=== PATIENT | female | born 2000 | race Caucasian/White ===

== ENCOUNTER 2022-07-26 22:43 | Emergency (ER) | payer OTHER ==
[2022-07-26 22:48] VITALS: BP 118/73; PULSE 100; RESP 18; TEMP 98.4; BMI 19.5
[2022-07-26] MEDS ORDERED: ONDANSETRON 4 MG/2 ML VIAL IVPUSH ONE (23:48)
[2022-07-26] MEDS ORDERED: LACTATED RINGERS SOLUTION 1000 ML INFUS.BAG IV ONE (23:49)
[2022-07-27 00:01] LABS: BASO % 0.2 % (0-2.0); EOS % 1.5 % (0-4.5); HEMATOCRIT 46.4 % (32.4-45.2); HEMOGLOBIN 15.4 GM/dL (10.7-15.3); LYMPH % 30.9 % (8-40); MCH 26.7 pg (25.7-33.7); MCHC 33.1 g/dl (32.0-36.0); MEAN CELL VOLUME 80.7 fl (80-96); MEAN PLT VOLUME 9.2 fl (7.5-11.1); MONO % 8.3 % (3.8-10.2); NEUT % 59.1 % (42.8-82.8); PLATELET COUNT 309 10^3/uL (134-434); RBC 5.75 M/mm3 (3.60-5.2); RDW 14.8 % (11.6-15.6); WHITE BLOOD COUNT 7.9 K/mm3 (4.0-10.0)
[2022-07-27] MEDS ORDERED: ONDANSETRON 4 MG/2 ML VIAL ONE (00:24)
[2022-07-27 00:38] LABS: BLOOD UREA NITROGEN 8.3 mg/dL (7-18); CALCIUM 9.8 mg/dL (8.5-10.1); MAGNESIUM 1.9 mg/dL (1.8-2.4)
[2022-07-27 00:39] LABS: ALBUMIN 4.2 g/dl (3.4-5.0)
[2022-07-27 00:41] LABS: CREATININE 0.6 mg/dL (0.55-1.3)
[2022-07-27 00:43] LABS: EPI CELLS 18 /uL (0-25.1); HYALINE CASTS 1 /uL (0-3.1); URINE APPEARANCE CLEAR; URINE BACTERIA 38 /uL (0-1359); URINE BILIRUBIN NEGATIVE (NEGATIVE); URINE COLOR YELLOW; URINE GLUCOSE (UA) NEGATIVE (NEGATIVE); URINE KETONE NEGATIVE (NEGATIVE); URINE LEUK ESTERASE NEGATIVE (NEGATIVE); URINE NITRITE NEGATIVE (NEGATIVE); URINE PROTEIN NEGATIVE (NEGATIVE); URINE RBC 32 /uL (0-23.9); URINE WBC 27 /uL (0-25.8)
[2022-07-27 00:43] LABS: BILIRUBIN,TOTAL 0.3 mg/dL (0.2-1)
[2022-07-27 01:12] LABS: HCG,QUALITATIVE URINE Positive
== END 2022-07-27 03:26 | disposition home or self-care (01) ==
LOC: JER 22:43
PROC: 3E033GC Introduction of Other Therapeutic Substance into Peripheral Vein, Percutaneous Approach (ICD-10-PCS; principal; 2022-07-26)
DX: O20.0 Threatened abortion (principal); Z3A.01 Less than 8 weeks gestation of pregnancy
CPT/HCPCS: 76817-TC; 80053; 81003; 83735; 84702; 84703; 85025; 86850; 86900; 86901; 87086; 99284-25

== ENCOUNTER 2022-07-29 07:55 | Emergency (ER) | payer OTHER ==
[2022-07-29 08:06] VITALS: BP 124/74; PULSE 71; RESP 20; TEMP 98.5; BMI 20.9
[2022-07-29 10:09] LABS: EPI CELLS 36 /uL (0-25.1); HYALINE CASTS 7 /uL (0-3.1); URINE APPEARANCE CLOUDY; URINE BACTERIA 279 /uL (0-1359); URINE BILIRUBIN 1+ (NEGATIVE); URINE COLOR DK YELLOW; URINE GLUCOSE (UA) NEGATIVE (NEGATIVE); URINE KETONE 4+ (NEGATIVE); URINE LEUK ESTERASE 1+ (NEGATIVE); URINE NITRITE NEGATIVE (NEGATIVE); URINE PROTEIN 1+ (NEGATIVE); URINE RBC 0 /uL (0-23.9); URINE WBC 156 /uL (0-25.8)
[2022-07-29 12:12] LABS: EPI CELLS 20 /uL (0-25.1); HYALINE CASTS 3 /uL (0-3.1); URINE APPEARANCE TURBID; URINE BACTERIA 134 /uL (0-1359); URINE BILIRUBIN NEGATIVE (NEGATIVE); URINE COLOR DK YELLOW; URINE GLUCOSE (UA) NEGATIVE (NEGATIVE); URINE KETONE 3+ (NEGATIVE); URINE LEUK ESTERASE NEGATIVE (NEGATIVE); URINE NITRITE NEGATIVE (NEGATIVE); URINE PROTEIN TRACE (NEGATIVE); URINE RBC 3 /uL (0-23.9); URINE WBC 27 /uL (0-25.8)
[2022-07-29 15:08] LABS: URINE CRYSTALS NEGATIVE /hpf
[2022-07-29 15:09] LABS: URINE CRYSTALS NEGATIVE /hpf
== END 2022-07-29 11:30 | disposition home or self-care (01) ==
LOC: JER 07:55
DX: O03.9 Complete or unspecified spontaneous abortion without complication (principal); Z3A.01 Less than 8 weeks gestation of pregnancy
CPT/HCPCS: 36415; 81003; 84702; 87086; 99283-25